=== PATIENT | male | born 1960 | race African-American/Black ===

== ENCOUNTER 2018-04-22 12:53 | Day surgery (SDC) | payer OTHER ==
[~2018-04-22 12:53] MED LIST: Buffered Lidocaine 0.9% SYRIN* 5 ML/SYR SYRINGE INTRADERM ONE; Sodium Citrate/Citric Acid* 15 ML UDC PO ONE
[2018-04-22] MEDS ORDERED: ceFAZolin 2 GM PREMIX (*) 2 GM/50 ML BAG IVPB ONE (13:55)
[2018-04-22] MEDS ORDERED: Sodium Citrate/Citric Acid* 15 ML UDC ONE (13:55)
[2018-04-22] MEDS ORDERED: Ropivacaine* 2 MG/ML 20 ML VIAL (0.2%) ONE (14:32)
[2018-04-22] MEDS ORDERED: Midazolam* 1 MG/ML 5 ML VIAL (5 MG) ONE (14:41)
[2018-04-22] MEDS ORDERED: fentaNYL* 50 MCG/ML 2 ML VIAL (100 MCG VIAL) ONE (14:41)
[2018-04-22] MEDS ORDERED: Propofol* 10 MG/ML 20 ML BTL IV PUSH ONE (15:02)
[2018-04-22] MEDS ORDERED: Lidocaine 2% PF * 5 ML VIAL ONE (15:02)
[2018-04-22 16:38] VITALS: BP 139/104
--- NOTE | 2018-04-23 07:58 | RAD ---
CPT II Codes: G9500 INDICATION: Left small finger fracture TECHNIQUE: Intraoperative fluoroscopy was provided during intramedullary pin fixation of fractured left small finger. FINDINGS: 3 spot films depict percutaneous pinning of the distal interphalangeal joint of the left small finger. Fluoroscopy time: 13 seconds IMPRESSION: As above.
--- NOTE | 2018-04-23 21:41 | OP ---
DATE OF OPERATION: 04/22/18 - [facility] DATE OF : 60 SURGEON: Julio Cesar Quezada MD TRIAL COURT JUDGE: CLARKE Jordan ANESTHESIOLOGIST: Dr. Rojo. ANESTHESIA: Local MAC. PRE-OP DIAGNOSIS: Left small fingertip crush injury with significant nail bed injury and displacement through a distal phalanx shaft open fracture. POST-OP DIAGNOSIS: Left small fingertip crush injury with significant nail bed injury and displacement through a distal phalanx shaft open fracture. OPERATIVE PROCEDURES: 1. Irrigation and debridement, left small finger distal phalanx open fracture involving skin and bone and fascia. 2. Open reduction internal fixation of left small finger distal phalanx fracture. 3. Repair of nail bed, left small finger. ESTIMATED BLOOD LOSS: 2 mL. COMPLICATIONS: None. INDICATIONS: Stefano is a 57-year-old inmate; he has the aforementioned injury. I had seen him in the office. The fracture fragments were displaced the full shaft with. The nail plate was present. , there was significant displacement through the nail bed, which was injured given the magnitude of displacement of the bone. We had talked about doing a procedure to improve the alignment of the bone and to repair the nail bed. He wanted to proceed. FINDINGS: See above and below. DESCRIPTION OF PROCEDURE: Stefano was seen in the preoperative holding area. The correct site, side, and procedure were identified. We came back to the operating room where he got some anesthesia and then I performed a digital block with ropivacaine and lidocaine. The arm was then prepped and draped in the usual fashion and a time-out was performed. I exsanguinated the finger with the Tourni-Cot and left that arm proximally throughout the procedure. I then used the Iris scissors to remove the nail plate in its entirety. This was scrubbed and placed in a Betadine soak. Immediately present was a very large rent through the sterile matrix, this was displaced. I went ahead and opened this up and was able to irrigate out the open fracture. Once I had performed I and D of the sterile matrix and the underlying bone, I went ahead and reduced the fracture. I placed 1 longitudinal K-wire through the distal end of the fracture and then traversing the DIP joint to hold things in the reduced position. I then took some 5-0 Chromic gut suture and repaired the nail bed with three stitches placed in simple interrupted fashion. I then replaced the nail plate and sutured it in place with 4-0 nylon suture. Multiple stitches were placed traversing from the dorsal skin and soft tissue across out the distal volar aspect of the fingertip. These were 4-0 nylon sutures, they were tied tight. Ultimately, I thought that this was probably holding the reduction of the distal fracture and so I went ahead and removed the K-wire and got some mini C-arm images to make sure the alignment was held. It was indeed held in a very nice alignment on both the AP and lateral views. I therefore decided to leave the K-wire out and go with strictly suture fixation given the risk for infection in an inmate, who will be unable to maintain the pin well. At this point, the fracture was washed out and reduced. Nail bed was repaired. The nail plate had been placed back in place and so I went ahead and let off the Tourni-Cot. The finger was dressed appropriately and he was taken to the recovery room in stable condition. [id number]/[facility] #: [id number] SRIKANTH
== END 2018-04-22 16:58 ==
LOC: OR 12:53
PROVIDERS: ATTEND Orthopaedic Surgery Hand Surgery
DX: S67.197A Crushing injury of left little finger, initial encounter (principal); S62.637B Displaced fracture of distal phalanx of left little finger, initial encounter for open fracture; Z72.0 Tobacco use; W23.0XXA Caught, crushed, jammed, or pinched between moving objects, initial encounter; Y92.149 Unspecified place in prison as the place of occurrence of the external cause; J45.909 Unspecified asthma, uncomplicated
CPT/HCPCS: 76000; A9270-GY; J0690; J2250; J2704; J2795; J3010